=== PATIENT | female | born 1955 | race Two or more races ===

== ENCOUNTER 2017-06-07 07:13 | Emergency (ER) | payer MEDICARE, OTHER ==
[~2017-06-07] VITALS: Ht 165.1 cm; Wt 96.6 kg
[~2017-06-07 07:13] MED LIST: CIPR-262 PO; CLON0.1T PO; GLIM2TAB2 PO; HYDR-3326 PO; LOSA100T15 PO; METF850T2 PO; METO-304 PO
--- NOTE | 2017-06-07 07:30 | NUR ---
BIBDTR DT GENERALIZED BODY RASH X 3 DAYS, STATES "FROM MY BP MEDS". NO NEW MEDICATION, PER DTR, PT HAS BEEN ON THE SAME BP MEDS X 3 YEARS. VSS AT THIS TIME. CONNECTED TO TELE MONITOR
[2017-06-07] MEDS ORDERED: diphenhydrAMINE HCL 50 MG/ML VIAL ONE (07:38)
[2017-06-07] MEDS ORDERED: methylPREDNISolone SOD SUCC 125 MG/2ML VIAL ONE (07:38)
[2017-06-07] MEDS ORDERED: FAMOTIDINE/PF INJ 20 MG/2 ML VIAL IV ONE ×2 (07:40→08:00)
[2017-06-07] MEDS ORDERED: methylPREDNISolone SOD SUCC 125 MG/2ML VIAL IV ONE (08:00)
[2017-06-07] MEDS ORDERED: diphenhydrAMINE HCL 50 MG/ML VIAL IV ONE (08:00)
--- NOTE | 2017-06-07 08:01 | NUR ---
IV ACCESS STARTED. MEDICATED ORDERED.
[2017-06-07 09:00] VITALS: BP 158/85
--- NOTE | 2017-06-07 09:01 | NUR ---
IV removed. Catheter intact and site benign. Pressure and 4x4 applied to site. No bleeding noted.Patient discharged to home in stable condition. Written and verbal after care instructions given. Patient verbalizes understanding of instruction.
== END 2017-06-07 09:02 | disposition home or self-care (01) ==
LOC: ER 07:15
DX: T78.3XXA Angioneurotic edema, initial encounter (principal); L50.1 Idiopathic urticaria; I10 Essential (primary) hypertension; E11.9 Type 2 diabetes mellitus without complications; M19.90 Unspecified osteoarthritis, unspecified site; Z95.1 Presence of aortocoronary bypass graft; Z95.5 Presence of coronary angioplasty implant and graft
CPT/HCPCS: 96374; 96375; 99284; A4606; J1200; J2930; J3490; Z7610